=== PATIENT | male | born 1950 | race Caucasian/White ===

== ENCOUNTER 2019-12-15 14:22 | Emergency (ER) | payer MEDICARE, SELFPAY ==
[2019-12-15] VITALS (20 sets, daily range): BP systolic 145–189; BP diastolic 91–108; PULSE 60–82; RESP 13–25; TEMP 37; O2SAT 92–98
[2019-12-15] MEDS: Ondansetron 4 MG/2 ML VIAL IVP (14:45)
[2019-12-15] MEDS: Normal Saline 500 ML 1000 ML IV (14:46)
--- NOTE | 2019-12-15 15:11 | ED.GENADUL_ITS ---
Discharge Plan Disposition Patient Disposition: HOME Condition: Fair Discharge Details Chief Complaint: Abd Prob Clinical Impression: Nausea, Abdominal pain Primary Care Provider: Emily Damian ED Provider: Nolvia Key Home Meds and New Rx's Prescriptions: Continued atenolol 50 MG tablet 12.5 mg PO BID RF: 0 omeprazole 20 mg Capsule,Delayed Release(Dr/Ec) 20 mg PO DAILY RF: 0 Discharge Instructions Instructions: Acute Nausea and Vomiting (ED), Abdominal Pain (ED) Additional Instructions: Please contact your primary care physician to arrange follow-up. Your blood pressure was slightly elevated today. Be sure to discuss this with your doctor Please stop smoking marijuana as this may be contributing to your symptoms. Return to the ER for any worsening or new concerning symptoms. Referrals: Emily Damian [Primary Care Provider] - Discharge Data Discharge Date/Time-TO BE ENTERED AT DEPARTURE: 12/15/19 16:45 Medical Decision Making <Nirav Crespo MD - Last Filed: 12/24/19 15:03> 1515 -- 69 yo m with history of remote arsenic poisoning and now with episodic nausea and abdominal pain that occurs every 2-8 weeks. Patient is dry heaving on exam. Nursing notes they observe the patient sticking his finger down his throat to induce vomiting. Patient specifically requests morphine for treatment. When I advised that this was not currently indicated he then requested Ativan which I also noted was not currently indicated. Plan to treat with Zofran IV, Pepcid IV, IV fluids, Toradol IV, and Tylenol IV. 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 15:28 --patient reassessed and I discussed prior diagnosis of cannabinoid hyperemesis syndrome with him. Patient adamantly denies this. He continues to request opioid pain medication. Patient currently receiving Toradol. Plan to reassess. <Nolvia Key NP - Last Filed: 12/15/19 20:46> Medical Records Medical records narrative: care of patient received. He is refusing labetalol ordered for his blood pressure. He continues with behavioral attempts at receiving narcotics. He is hemodynamically stable and will be discharged home to follow-up with his primary care provider HPI <Nirav Crespo MD - Last Filed: 12/24/19 15:03> General Mode of arrival: ambulatory . Date/Time Provider Initiated Documentation: 12/15/19 14:31 . Limitations to Documentation: no limitations . Information obtained by: patient . HPI Narrative: 69-year-old male presents with chief complaint of nausea. 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 He notes that since that time he has had chronic intermittent episodes of severe abdominal pain that occur every 2 weeks to 2 months and typically last a day. He has had significant work-ups for this in the past that have been negative for any other gastrointestinal pathology. He is here today noting nausea and dry heaving all day. He has diffuse crampy abdominal pain. He notes a normal bowel movement earlier today. Patient denies vomiting. He states he never has vomiting with these episodes. Of note, patient was seen at [facility] 2 weeks ago for similar episode. Patient notes that when he has these episodes he is treated with Pepcid, morphine and Zofran. Related Data Home Medications Medication Instructions Recorded Confirmed atenolol 12.5 mg PO BID tab-cap 03/17/16 12/15/19 omeprazole 20 mg PO DAILY 12/15/19 12/15/19 Allergies Allergy/AdvReac Type Severity Reaction Status Date / Time erythromycin base AdvReac Mild dizziness/d Unverified 12/15/19 17:51 isorientati on General Stated Complaint: Abd Prob RODNEY: 3 <Nolvia Key NP - Last Filed: 12/15/19 20:46> General Mode of arrival: ambulatory . Information obtained by: patient . Stated Complaint: Abd Prob RODNEY: 3 Review of Systems <Nirav Crespo MD - Last Filed: 12/24/19 15:03> All systems reviewed & are unremarkable except as noted in HPI and below Constitutional Constitutional: Denies fever(s) Cardiovascular Cardiovascular: Denies chest pain Gastrointestinal Gastrointestinal: Reports abdominal pain and Reports nausea PFSH <Nirav Crespo MD - Last Filed: 12/24/19 15:03> Social History Smoking/Tobacco Use Status: Former Tobacco Use Alcohol Intake: current Alcohol Intake frequency: a few times a month Drug use: Daily Substance use type: marijuana Details: 2009 quit smoking tobacco Do you feel safe at home: Yes (homeless) Do you feel safe in your relationship?: Yes Exam <Nirav Crespo MD - Last Filed: 12/24/19 15:03> Const General: cooperative and no acute distress HENMT Mouth: moist mucous membranes Eyes Conjunctivae: normal conjunctivae Sclera: normal sclerae Neck Neck: trachea midline and supple Resp Auscultation: clear to auscultation bilaterally, no rales, no rhonchi and no wheezes Cardio Jugular venous pressure: no JVD Rate: regular rate and not tachycardic Rhythm: regular rhythm GI Palpation: soft, not firm, no guarding, no masses, not rigid and tender (Diffuse) with no rebound tenderness Skin General skin exam: no rashes or lesions noted Neuro General: patient alert, patient awake, patient oriented x3 and tone normal Extrem General: no edema Psych Appearance: grossly normal Mental Status: mental status grossly normal Speech and Movement: speech and movement normal <Nolvia Key NP - Last Filed: 12/15/19 20:46> Resp Effort & Inspection: normal respiratory effort Course <Nirav Crespo MD - Last Filed: 12/24/19 15:03> Vital Signs Vital signs: Vital Signs Temperature 37.0 C 12/15/19 14:25 Pulse 62 12/15/19 14:25 Respiratory Rate 20 12/15/19 14:25 Blood Pressure 158/93 H 12/15/19 14:25 Pulse Oximetry 97 12/15/19 14:25 Temperature 37.0 C 12/15/19 14:25 Temperature Source Skin 12/15/19 14:25 Pulse 62 12/15/19 14:25 Respiratory Rate 20 12/15/19 14:25 Respiratory Effort 12/15/19 14:33 Blood Pressure 158/93 H 12/15/19 14:25 Blood Pressure Position Supine 12/15/19 14:25 Pulse Oximetry 97 12/15/19 14:25 Oxygen Delivery Method Room Air 12/15/19 14:25 Oxygen Flow Rate 0 12/15/19 14:25 Pain Level 4 12/15/19 14:25 Sign Out <Nirav Crespo MD - Last Filed: 12/24/19 15:03> Sign Out Data: Sign Out Comment: Patient to receive labetalol IV for blood pressure as he is unable to take his prescribed antihypertensive. Patient to be signed out to SAVANNA Key with plan to reassess patient for disposition. Last updated by Nirav Crespo MD at 12/15/19 16:04
[2019-12-15 15:12] LABS: Abs Immature Grans 0.02 10^3/uL (0.0-0.06); Absolute Basophil Count 0.03 10^3/uL (0.0-0.2); Absolute Eosinophil Count 0.08 10^3/uL (0.0-0.7); Basophils % 0.3; Eosinophils % 0.9; HCT 45.5 % (40.0-50.0); HGB 15.4 g/dL (13.5-17.5); Immature Grans % 0.2; Lymphocytes % 12.2; MCH 31.4 pg (27.0-33.0); MCHC 33.8 % (32.0-36.0); MCV 92.7 fL (80-95); MPV 9.8 fL (8.0-11.0); Monocytes % 6.6; Neutrophils % 79.8; Nucleated RBC 0 %; Platelet Count 320 10^3/uL (130-400); RBC 4.91 10^6/uL (4.36-5.78); RDW 13.3 % (11.8-14.1); RDW-SD 45.5 fL; WBC 9.03 10^3/uL (4.4-10.8)
[2019-12-15 15:14] LABS: Bilirubin Negative (Negative); Blood Negative (Negative); Clarity Clear (Clear); Glucose Negative (Negative); Ketones Negative (Negative); Leukocyte Esterase Negative (Negative); Nitrite Negative (Negative); Specific Gravity >= 1.030 (1.005-1.025); Urobilinogen 0.2 EU/dL (Up TO 0.2); pH 5.5 (5-8)
[2019-12-15] MEDS: Ketorolac 30 MG/ML VIAL IVP (15:17)
[2019-12-15] MEDS: FAMOTIDINE 20 MG/50 ML BAG 200 MG IVPB (15:18)
[2019-12-15] MEDS: ACETAMINOPHEN 1,000 MG/100 ML BTL 400 MG IVPB (15:18)
[2019-12-15 15:24] LABS: Bacteria Negative HPF (Negative); C & S Indicated? No; Crystals Negative HPF (Negative); Epithelial Cells Negative HPF (Negative); Mucus Moderate (Negative); RBC 0-2 HPF (0-2)
[2019-12-15 15:26] LABS: ALT 15 U/L (16-63); AST 15 U/L (15-37); Alkaline Phosphatase 85 U/L (46-116); Anion Gap 9.5 mmol/L (3-11); BUN 15 mg/dL (7-18); Bilirubin, Total 0.6 mg/dL (0.2-1.0); CO2 26.5 mmol/L (21.0-32.0); CREATININE 0.88 mg/dL (0.70-1.30); Calcium 9.1 mg/dL (8.5-10.1); Chloride 102 mmol/L (98-107); Glucose 113 mg/dL (74-106); Lipase 148 U/L (73-393); Potassium 3.9 mmol/L (3.5-5.1); Sodium 138 mmol/L (136-145); Total Protein 7.6 g/dL (6.4-8.2)
[2019-12-15] MEDS: Labetalol 100 MG/20 ML VIAL 10 MG IVP (16:25)
== END 2019-12-15 16:45 | disposition home or self-care (01) ==
PROVIDERS: Student in an Organized Health Care Education/Training Program; Emergency Provider Nurse Practitioner Acute Care; PCP Family Medicine
DX: R10.84 Generalized abdominal pain (principal); R11.0 Nausea; F12.10 Cannabis abuse, uncomplicated
CPT/HCPCS: 36415; 80053; 83690; 96361; 96365; 96375; 99284; 81003; 81015; 85025; J0131; J1885; J2405

== ENCOUNTER 2019-12-15 17:43 | Emergency (ER) | payer MEDICARE, SELFPAY ==
--- NOTE | 2019-12-15 17:47 | ED.GENADUL_ITS ---
Discharge Plan Disposition Patient Disposition: OTHER Discharge Details Chief Complaint: Abd Prob Clinical Impression: Nausea, Abdominal pain Primary Care Provider: Emily Damian ED Provider: Nolvia Key Home Meds and New Rx's Prescriptions: Continued atenolol 50 MG tablet 12.5 mg PO BID RF: 0 omeprazole 20 mg Capsule,Delayed Release(Dr/Ec) 20 mg PO DAILY RF: 0 Discharge Instructions Instructions: Acute Nausea and Vomiting (ED), Abdominal Pain (ED) Referrals: Emily Damian [Primary Care Provider] - Discharge Data Discharge Date/Time-TO BE ENTERED AT DEPARTURE: 12/15/19 17:47 Medical Decision Making <Nolvia Key NP - Last Filed: 12/15/19 20:48> Patient returns to the emergency department immediately after being discharged stating that he does not want to be discharged and is requesting morphine and Ativan. I did inform him that there was no medical condition that warranted those medications and that they would not be provided. He was informed that he did have a complete medical screening exam and there is no medical emergency identified. I offered a mental health consult which he declined and left the department <Adriana Michelle DO - Last Filed: 12/17/19 08:29> I did not see or participate in the care of this patient. HPI <Nolvia Key NP - Last Filed: 12/15/19 20:48> General Mode of arrival: ambulatory . Date/Time Provider Initiated Documentation: 12/15/19 17:47 . Information obtained by: patient . HPI Narrative: Patient returns after being discharged less than 30 minutes ago. He states his symptoms have unchanged. There is no new symptoms. Related Data Home Medications Medication Instructions Recorded Confirmed atenolol 12.5 mg PO BID tab-cap 03/17/16 12/15/19 omeprazole 20 mg PO DAILY 12/15/19 12/15/19 Allergies Allergy/AdvReac Type Severity Reaction Status Date / Time erythromycin base AdvReac Mild dizziness/d Unverified 12/15/19 17:51 isorientati on General Stated Complaint: Abd Prob RODNEY: 3 Review of Systems <Nolvia Key NP - Last Filed: 12/15/19 20:48> Gastrointestinal Gastrointestinal: Reports abdominal pain and Reports nausea PFSH <Nolvia Key NP - Last Filed: 12/15/19 20:48> Social History Smoking/Tobacco Use Status: Former Tobacco Use Alcohol Intake: current Alcohol Intake frequency: a few times a month Drug use: Daily Substance use type: marijuana Details: 2009 quit smoking tobacco Do you feel safe at home: Yes (homeless) Do you feel safe in your relationship?: Yes Exam <Nolvia Key NP - Last Filed: 12/15/19 20:48> Narrative Exam Narrative: /Agitated appearing older than stated age flushed, bent over holding abdomen
== END 2019-12-15 17:47 | disposition other institution (70) ==
PROVIDERS: Emergency Provider Nurse Practitioner Acute Care; PCP Family Medicine
DX: R11.2 Nausea with vomiting, unspecified (principal); R10.9 Unspecified abdominal pain; Z53.29 Procedure and treatment not carried out because of patient's decision for other reasons
CPT/HCPCS: 36415; 80053; 83690; 96361; 96365; 96375; 99281; 99284; 81003; 81015; 85025; 99282; J0131; J1885; J2405